=== PATIENT | male | born 1995 ===

== ENCOUNTER 2018-03-16 12:36 | Emergency (ER) | payer BC ==
--- NOTE | 2018-03-16 12:40 | UC ---
FLU HPI - HPI Summary HPI Summary: 22 yo male presents with fever, body aches, nausea, and fatigue for the last 4 days - improved today. He is concerned he may have the flu. 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 He has been taking tylenol and ibuprofen for his discomfort and fever with good results. Currently is feeling much better and has been without a fever for 24 hours. Denies sinus symptoms, cough, SOB, chest pain, abdominal pain. - History of Current Complaint Stated Complaint: FLU SYMPTOMS Time Seen by Provider: 03/16/18 12:40 Hx Obtained From: Patient Onset/Duration: Gradual Onset Severity Currently: Mild Severity Initially: Moderate Pain Intensity: 3 Pain Scale Used: 0-10 Numeric - Allergy/Home Medications Allergies/Adverse Reactions: Allergies Allergy/AdvReac Type Severity Reaction Status Date / Time dairy Allergy GI Upset Uncoded 03/16/18 12:45 Home Medications: Home Medications Acetaminophen [Tylenol] 650 mg PO ONCE PRN 03/16/18 [History Confirmed 03/16/18] Dm/PE/Acetaminophen/Doxylamine [Vicks Nyquil Severe Cold-Flu] 1 each PO ONCE PRN 03/16/18 [History Confirmed 03/16/18] PMH/Surg Hx/FS Hx/Imm Hx - Additional Past Medical History Additional PMH: None Review of Systems All Other Systems Reviewed And Are Negative: Yes Constitutional: Positive: Fever, Fatigue, Other - Body aches Skin: Positive: Negative Eyes: Positive: Negative ENT: Positive: Negative Respiratory: Positive: Negative Cardiovascular: Positive: Negative Gastrointestinal: Positive: Negative Neurovascular: Positive: Negative Neurological: Positive: Negative Psychological: Positive: Negative Physical Exam - Summary Physical Exam Summary: GENERAL: NAD. WDWN. No pain distress. SKIN: No rashes, sores, lesions, or open wounds. HEENT: Head: AT/NC Eyes: EOM intact. Conjunctiva clear without inflammation or discharge. Ears: Hearing grossly normal. TMs intact, no bulging, erythema, or edema. Nose: Nasal mucosa pink and moist. NTTP maxillary and frontal sinus. Throat: Posterior oropharynx without exudates, erythema, or tonsillar enlargement. Uvula midline. NECK: Supple. Nontender. No lymphadenopathy. CHEST: CTAB. No r/r/w. No accessory muscle use. Breathing comfortably and in no distress. CV: RRR. Without m/r/g. Pulses intact. Cap refill <2seconds NEURO: Alert. PSYCH: Age appropriate behavior. Triage Information Reviewed: Yes Vital Signs: Vital Signs: Temp Pulse Resp BP Pulse Ox 98.7 F 100 18 149/93 100 03/16/18 12:41 03/16/18 12:41 03/16/18 12:41 03/16/18 12:41 03/16/18 12:41 Laboratory Tests 03/16/18 12:55 Influenza A (Rapid) Positive A Vital Signs Reviewed: Yes Flu Course/Dx - Course Course Of Treatment: POC flu A positive. Pt is improving. Advised to continue rest and fluids. Tylenol/ibuprofen prn. - Differential Dx/Diagnosis Provider Diagnosis: Influenza Discharge - Sign-Out/Discharge Documenting (check all that apply): Patient Departure All imaging exams completed and their final reports reviewed: No Studies - Discharge Plan Condition: Stable Disposition: HOME Patient Education Materials: Influenza (DC) Forms: *Work Release Referrals: Claudio Smith MD [Primary Care Provider] - Additional Instructions: If you develop a fever, shortness of breath, chest pain, new or worsening symptoms - please call your PCP or go to the ED. Your blood pressure was high at todays visit. Please see your primary provider within 4 weeks for recheck and re-evaluation. - Billing Disposition and Condition Condition: STABLE Disposition: Home
[2018-03-16 12:45] VITALS: BP 149/93
== END 2018-03-16 13:15 | disposition home or self-care (01) ==
LOC: UCEAST 12:36
DX: J10.1 Influenza due to other identified influenza virus with other respiratory manifestations (principal)
CPT/HCPCS: 99201; G0463